=== PATIENT | female | born 1970 | race Caucasian/White ===

== ENCOUNTER → 2019-09-19 10:12 | Outpatient (CLI) | payer OTHER, SELFPAY ==
--- NOTE | ~2019-09-19 | MM_ITS ---
EXAMINATION: MM screening [facility] BI w ame HISTORY: Screening mammogram TECHNIQUE: Craniocaudal and mediolateral oblique 3-D tomosynthesis images were obtained and synthetic 2-D images were generated. CAD analysis was submitted and interpreted. COMPARISON: 05/23/2018, 08/22/2016, 07/27/2015 bilateral digital mammogram examinations BREAST PARENCHYMAL COMPOSITION: The breasts are extremely dense, which lowers the sensitivity of mamm ography. FINDINGS: Numerous largely punctate benign calcifications are scattered throughout the fibroglandular stroma of both breasts. There is no evidence of suspicious mass, calcification, or architectural dis tortion to suggest malignancy in either breast. There has been no suspicious interval change. IMPRESSION: 1. No mammographic evidence of malignancy. 2. Recommend routine screening mammography in one year. BI-RADS Category 1: Negative Reviewed, dictated and finalized at location A.
== END ==
PROVIDERS: Visit Provider Obstetrics & Gynecology
DX: Z12.31 Encounter for screening mammogram for malignant neoplasm of breast (principal)
CPT/HCPCS: 77063; 77067

== ENCOUNTER 2020-04-05 11:02 | Emergency (ER) | payer OTHER, SELFPAY ==
[2020-04-05 11:09] VITALS: BP 138/92; PULSE 97; RESP 18; TEMP 36.5; O2SAT 100
--- NOTE | 2020-04-05 13:18 | ED.GENADULT ---
HPI - General Adult General Chief complaint: Skin/Abscess/Foreign Body Stated complaint: COVID symptoms, rash, flank pain Time Seen by Provider: 04/05/20 12:17 Source: patient Mode of arrival: ambulatory Limitations: no limitations History of Present Illness HPI narrative: 50 years old white female presents with itching, burning rash of the upper and lower extremities bilaterally. Started 3 days ago. 2 days prior to that patient developed pain at the right flank area which is gradually getting better, called her family physician, started on antibiotic 1-1/2-day after the beginning of the rash for possible urinary tract infection./Virtual visit.. Patient's daughter who have type 1 diabetes had positive COVID-19 test on March 17, her mom however was negative during the quarantine duration, March 17 to March 31. Patient denying any fever, chills, nausea, vomiting, sore throat, coughing, shortness of breath, chest pain or back pain Patient has unremarkable past medical history, does not take medication at home, does not smoke drinks occasionally does not use drugs Related Data Allergies Allergy/AdvReac Type Severity Reaction Status Date / Time codeine Allergy Mild Verified 02/12/20 08:40 TYLENOL- CODEINE Allergy Unknown Uncoded 02/12/20 08:40 Review of Systems Review of Systems: Narrative: CONSTITUTIONAL: Denies fever, chills, or sweats. EYES: Denies visual changes, redness, or discharge. ENT: Denies rhinorrhea, congestion, sore throat, or otalgia. CARDIOVASCULAR: Denies chest pain, palpitations, or edema. RESPIRATORY: Denies cough or dyspnea. GASTROINTESTINAL: Denies abdominal pain, nausea, vomiting, or diarrhea. GENITOURINARY: Denies dysuria or hematuria. SKIN: Denies rash or itching. MUSCULOSKELETAL: Denies back pain, joint pain, or myalgia. NEUROLOGIC: Denies headache, numbness, or weakness. PSYCHIATRIC: Denies anxiety or depression. [facility] Family History Family History Other Family history of malignant neoplasm Social History Social History Smoking status: Never smoker Alcohol intake: current Gender identity (if verbalized by the patient): Female Exam Narrative: Exam Narrative: General appearance: Well-developed, well-nourished Skin: Normal color, patches of raised red skin on the upper and lower extremities. Head: Normocephalic, nontraumatic Eyes: Clear conjunctiva ENT: Oropharynx normal, ears normal, nose normal Neck: Supple, nontender Chest and respiratory: Airway patent, no respiratory distress, no accessory muscle use Heart: Regular rate/rhythm Abdomen: Soft, nontender, no organomegaly, quiet bowel sounds Vascular: Normal peripheral pulses, normal capillary refill. Musculoskeletal: Normal range of motion, nontender back Neurologic: Alert and oriented ?3, [employer] is normal as tested, no gross motor deficit Course Course Emergency Course: Stable Vital Signs Vital signs: Vital Signs Temperature 36.5 C 04/05/20 11:09 Pulse Rate 97 04/05/20 11:09 Respiratory Rate 18 04/05/20 11:09 Blood Pressure 138/92 H 04/05/20 11:09 Pulse Oximetry 100 04/05/20 11:09 Temperature 36.5 C 04/05/20 11:09 Pulse Rate 97 04/05/20 11:09 Respiratory Rate 18 04/05/20 11:09 Blood Pressure 138/92 H 04/05/20 11:09 Pulse Oximetry 100 04/05/20 11:09 Medical Decision Making [facility] Narrative Medical decision making narrative: Patient started antibiotic for possible urinary tract infection 1-1/2-day prior to the beginning of the rash. Patient been with her Covid positive daughter up to March 31 with very close contact. [place]
[2020-04-05 13:51] LABS: Basophils Percent Auto 0.3 % (0.2-1.2); Eosinophils Absolute Auto 0.1 K/mm3 (0-0.3); Eosinophils Percent Auto 1.6 % (0-4.4); Hematocrit 42.1 % (37.0-47.0); Hemoglobin 14.3 g/dL (12.0-15.0); Immature Granulocyte Absolute 0.02 K/mm3 (0.00-0.031); Immature Granulocyte Percent A 0.3 % (0-0.5); Lymphocytes Absolute Auto 1.87 K/mm3 (0.9-3.2); Lymphocytes Percent Auto 23.4 % (18.3-44.2); Mean Corpuscular Hemoglobin 31.3 pg (26-34); Mean Corpuscular Volume 92.1 fl (80-100); Mean Platelet Volume 9.1 fl (7.4-10.4); Monocytes Absolute Auto 0.5 K/mm3 (0.1-0.6); Monocytes Percent Auto 6.6 % (2.6-8.5); Neutrophils Absolute Auto 5.4 K/mm3 (1.3-6.7); Neutrophils Percent Auto 67.8 % (45.5-73.1); Platelet Count Result 277 k/mm3 (150-375); Red Blood Count 4.57 M/mm3 (4.2-5.4); Red Cell Distribution Width 12.1 % (11.5-14.5)
[2020-04-05 13:53] LABS: Add Urine Microscopic? NO; Appearance Urine Clear (Clear); Bilirubin Urine Negative (Negative); Blood Urine Negative (Negative); Color Urine Yellow (Yellow); Glucose Urine UA Negative (Negative); Ketones Urine Negative (Negative); Leukocyte Esterase Ur Negative LEU/UL (Negative); Nitrate Urine Negative (Negative); Protein Urine Negative (Negative); Specific Grav Ur 1.023 (1.001-1.035); Urobilinogen Urine Negative mg/dL (<2.0)
[2020-04-05 14:04] LABS: Alanine Aminotransferase 22 U/L (4-35); Albumin Level 4.9 g/dL (3.5-5.1); Alkaline Phosphatase 60 U/L (38-126); Anion Gap 11 mmol/L (8-16); Aspartate Amino Transferase 31 U/L (14-36); Bilirubin,Total 1.1 mg/dL (0.2-1.3); Blood Urea Nitrogen 12 mg/dL (7-17); Calcium 9.3 mg/dL (8.4-10.2); Carbon Dioxide 28 mmol/L (22-30); Chloride 103 mmol/L (98-107); Estimated CRCL calculation 83 ml/min; Estimated Glomerular Filt Rate > 60; Glucose 91 mg/dL (65-105); Potassium 4.2 mmol/L (3.4-5.0); Sodium 142 mmol/L (137-145)
[2020-04-05 15:06] VITALS: BP 127/83; PULSE 74; RESP 18; O2SAT 98
[2020-04-06 11:16] LABS: SARS-CoV-2 RNA PCR Negative
== END 2020-04-05 15:07 | disposition home or self-care (01) ==
PROVIDERS: Emergency Provider Emergency Medicine
DX: U07.1 COVID-19 (principal); L30.9 Dermatitis, unspecified
CPT/HCPCS: 36415; 80053; 81003; 85025; 87635; 99283; C9803; U0003

== ENCOUNTER → 2022-08-19 11:34 | Outpatient (CLI) | payer OTHER, SELFPAY ==
--- NOTE | ~2022-08-19 | MM_ITS ---
EXAMINATION: MM screening [facility] BI w ame HISTORY: Screening mammogram TECHNIQUE: Craniocaudal and mediolateral oblique 3-D tomosynthesis images were obtained and synthetic 2-D images were generated. CAD analysis was submitted and interpreted. COMPARISON: September 19, 2019, May 23, 2018, August 22, 2016 bilateral screening mammogram examinatio ns BREAST PARENCHYMAL COMPOSITION: The breasts are heterogeneously dense, which may obscure small masses . FINDINGS: There are scattered bilateral benign calcifications. There is no evidence of suspicious mas s, calcification, or architectural distortion to suggest malignancy in either breast. There has been no suspicious interval change. IMPRESSION: 1. No mammographic evidence of malignancy. 2. Recommend routine screening mammography in one year. BI-RADS Category 2: Benign finding(s). Reviewed, dictated and finalized at location B. [employer]
== END ==
PROVIDERS: Visit Provider Obstetrics & Gynecology
DX: Z12.31 Encounter for screening mammogram for malignant neoplasm of breast (principal)
CPT/HCPCS: 77063; 77067

== ENCOUNTER 2023-01-06 15:17 | Outpatient (CLI) | payer OTHER, SELFPAY ==
--- NOTE | ~2023-01-06 | XR_ITS ---
XR foot LT min 3V DATE: 01/06/2023 15:45 INDICATION: Joint pain. No injury. TECHNIQUE: 4 views COMPARISON: None FINDINGS: Moderate plantar calcaneal enthesopathy without associated erosive change or periostitis. No fracture or dislocation, periosteal reaction or bone destruction or erosive change. IMPRESSION: Plantar calcaneal enthesopathy Reviewed, dictated and finalized at location B.
--- NOTE | ~2023-01-06 | XR_ITS ---
XR foot RT min 3V DATE: 01/06/2023 15:44 INDICATION: Joint pain. No injury. TECHNIQUE: 4 views COMPARISON: None FINDINGS: Moderate plantar calcaneal enthesopathy without associated erosive change or periostitis. No fracture, dislocation, periosteal reaction or bone destruction or erosive change. Mild hallux valgus and bunion deformity. IMPRESSION: Plantar calcaneal enthesopathy Mild hallux valgus and bunion deformity Reviewed, dictated and finalized at location B.
--- NOTE | ~2023-01-06 | XR_ITS ---
XR hand LT 2V DATE: 01/06/2023 15:45 INDICATION: Joint pain. No injury. TECHNIQUE: AP and lateral views COMPARISON: None FINDINGS: No fracture, dislocation, periosteal reaction or bone destruction, erosive change or chondr ocalcinosis. Joint spaces are relatively preserved. IMPRESSION: Negative Reviewed, dictated and finalized at location B. IMPRESSION: Negative
--- NOTE | ~2023-01-06 | XR_ITS ---
XR hand RT 2V DATE: 01/06/2023 15:45 INDICATION: Joint pain. No injury. TECHNIQUE: AP and lateral views COMPARISON: None FINDINGS: No fracture or dislocation, periosteal reaction or bone destruction or erosive change or ch ondrocalcinosis. IMPRESSION: No significant abnormality Reviewed, dictated and finalized at location B. IMPRESSION: No significant abnormality
== END 2023-01-06 15:18 ==
DX: M19.071 Primary osteoarthritis, right ankle and foot (principal); M19.072 Primary osteoarthritis, left ankle and foot; M19.049 Primary osteoarthritis, unspecified hand; M77.32 Calcaneal spur, left foot; M77.31 Calcaneal spur, right foot; M20.11 Hallux valgus (acquired), right foot; M21.611 Bunion of right foot
CPT/HCPCS: 73120; 73630

== ENCOUNTER 2024-01-03 12:15 | Outpatient (CLI) | payer OTHER, SELFPAY ==
--- NOTE | ~2024-01-03 | MM_ITS ---
EXAMINATION: MM screening [facility] BI w ame HISTORY: Screening TECHNIQUE: Craniocaudal and mediolateral oblique 3-D tomosynthesis images were obtained and synthetic 2-D images were generated. CAD analysis was submitted and interpreted. COMPARISON: Comparison to multiple prior studies sequentially, with oldest reviewed study dated 01/22. BREAST PARENCHYMAL COMPOSITION: Dense: The breasts are heterogeneously dense, which may obscure small masses FINDINGS: There is no evidence of suspicious mass, calcification, or architectural distortion to sugg est malignancy in either breast. There has been no suspicious interval change. IMPRESSION: 1. No mammographic evidence of malignancy. 2. Recommend routine screening mammography in one year. BI-RADS Category 1: Negative Reviewed, dictated and finalized at location B.
== END 2024-01-03 12:16 ==
LOC: MICIMG 12:16
PROVIDERS: PCP Obstetrics & Gynecology; Visit Provider Obstetrics & Gynecology
DX: Z12.31 Encounter for screening mammogram for malignant neoplasm of breast (principal)
CPT/HCPCS: 77063; 77067

== ENCOUNTER 2024-04-20 13:07 | Emergency (ER) | payer OTHER, SELFPAY ==
--- NOTE | ~2024-04-20 | XR_ITS ---
EXAM: XR knee RT min 4V DATE: 04/20/2024 14:02 HISTORY: FELL DIRECTLY ON KNEE, REPLACEMENT 8 MONTHS AGO, GEN PAIN . COMPARISON: 03/20/2017. FINDINGS: Decreased mineralization. No fracture or dislocation. No lytic or blastic lesion. Uncompli cated radiograph plasty hardware. Small-volume joint effusion. No erosion or periosteal change. Soft tissues within normal limits. IMPRESSION: No acute osseous finding in the right knee. No radiographic evidence of hardware related complication. Reviewed, dictated and finalized at location K. [employer] IMPRESSION: No acute osseous finding in the right knee. No radiographic evidenc e of hardware related complication.
--- NOTE | 2024-04-20 14:33 | ED_ITS ---
HPI - General Adult General Chief complaint: Extremity Injury, Lower Stated complaint: right knee pain Time Seen by Provider: 04/20/24 13:54 History of Present Illness HPI narrative: 54-year-old female present to the emergency department for evaluation of right knee pain. Patient does have prior history of knee surgery. Patient states her left leg slipped out in front of her and she landed on her bent right knee. Patient does have increased swelling and pain with ambulation. Related Data Allergies Allergy/AdvReac Type Severity Reaction Status Date / Time codeine Allergy Mild Unknown Verified 04/20/24 13:38 TYLENOL- CODEINE Allergy Unknown Unknown Uncoded 04/20/24 13:38 Review of Systems Review of Systems: All systems reviewed & are unremarkable except as noted in HPI and below PMFSH Family History Family History Other Family history of malignant neoplasm Social History Social History Smoking status: Never smoker Alcohol intake: current Gender identity (if verbalized by the patient): Female Exam Narrative: APPEARANCE: Well appearing, no pain, no distress, well-nourished. HEAD: normocephalic, atraumatic. EYES: PERRLA/EOMI, conjunctivae clear. NOSE: Normal no drainage EARS:TMS clear with good light reflex. THROAT: Pharynx clear, no exudate. NECK: Supple. No adenopathy, no masses. RESPIRATORY: Airway patent, respirations nonlabored. Clear to auscultation bilaterally, no rales, rhonchi, wheezing. CARDIOVASCULAR: Regular rate and rhythm without murmurs rubs or gallops. ABDOMINAL: Soft, nontender, nondistended, normal bowel sounds MUSCULOSKELETAL: Effusion and contusion to right knee no deformity NEURO: Alert. Cranial nerves II through XII intact. Good gait. Good coordination SKIN: Warm, dry. Normal Color PSYCHIATRIC: Normal affect/mood. Medical Decision Making MDM Narrative Medical decision making narrative: 54-year-old female presents emergency department for evaluation for right knee pain. Patient does have effusion and contusion and ecchymosis of the right knee but x-ray shows no acute fracture dislocation. Patient does report increased pain with ambulation so patient was offered crutches for limited weight- bearing. Patient was encouraged of close follow-up with primary care physician. All questions concerns were addressed. Differential Diagnosis Differential Diagnosis: Internal derangement of right knee, knee fracture, knee contusion, knee effusion, patellar fracture Imaging Data Radiologist's impression: Impressions Knee X-Ray 04/20/24 14:05 IMPRESSION: No acute osseous finding in the right knee. No radiographic evidence of hardware related complication. Discharge Plan Discharge Clinical Impression: Contusion of knee, right Patient Disposition: Home, Self-Care Condition: Stable Instructions: Antibiotic Form, Crutch Instructions (ED), Knee Immobilizer (ED) Additional Instructions: Tylenol and ibuprofen for pain control. Ice as directed. Elevate the knee, knee immobilizer for comfort and knee stability. Crutches for limited weight- bearing. Have close follow-up with your primary care physician. Prescriptions: No Action prednisone 50 mg tablet 50 mg PO DAILY Qty: 5 0RF Zyrtec 10 mg capsule 10 mg PO DAILY PRN (Reason: allergy symptoms) Qty: 10 0RF Follow-up/Referrals: PHYSICIAN NOT ON STAFF,NONSTAFF [Primary Care Provider] -
== END 2024-04-20 14:53 | disposition home or self-care (01) ==
PROVIDERS: Emergency Provider Emergency Medicine
DX: S80.01XA Contusion of right knee, initial encounter (principal); W01.0XXA Fall on same level from slipping, tripping and stumbling without subsequent striking against object, initial encounter
CPT/HCPCS: 73564; 99283

== ENCOUNTER 2025-01-06 07:32 | Outpatient (CLI) | payer OTHER, SELFPAY ==
--- NOTE | ~2025-01-06 | MM_ITS ---
EXAMINATION: MM screening [facility] BI w ame HISTORY: Screening TECHNIQUE: Craniocaudal and mediolateral oblique 3-D tomosynthesis images were obtained and synthetic 2-D images were generated. CAD analysis was submitted and interpreted. COMPARISON: Comparison to multiple prior studies sequentially, with oldest reviewed study dated 07/27. BREAST PARENCHYMAL COMPOSITION: Dense: The breasts are extremely dense, which lowers the sensitivity of mammography. FINDINGS: There is no evidence of suspicious mass, calcification, or architectural distortion to sugg est malignancy in either breast. There has been no suspicious interval change. IMPRESSION: 1. No mammographic evidence of malignancy. 2. Recommend routine screening mammography in one year. BI-RADS Category 1: Negative Reviewed, dictated and finalized at location B.
== END 2025-01-06 07:33 | disposition home or self-care (01) ==
LOC: MICIMG 07:33
PROVIDERS: PCP Obstetrics & Gynecology; Visit Provider Obstetrics & Gynecology
DX: Z12.31 Encounter for screening mammogram for malignant neoplasm of breast (principal)
CPT/HCPCS: 77063; 77067